=== PATIENT | female | born 1990 | race Caucasian/White ===

== ENCOUNTER → 2016-09-17 | Outpatient (CLI) | payer OTHER | LOC: FIMAGING 12:06 | PROVIDERS: ATTEND Obstetrics & Gynecology | DX: N63 Unspecified lump in breast (principal) ==

== ENCOUNTER 2016-10-22 06:59 | Day surgery (SDC) | payer OTHER ==
--- NOTE | 2016-10-20 10:18 | GHP ---
[f rep st] PREOP HISTORY AND PHYSICAL DATE OF ADMISSION: 10/22/2016 DATE OF SURGERY: Scheduled for 10/22/2016 CHIEF COMPLAINT: Left breast mass. HISTORY OF PRESENT ILLNESS: Venkat Lopez is a 25-year-old woman who presented to the clinic complaining of a new left breast mass. She was seen by her POT PUSHER who palpated the mass on physical exam. 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 She desires surgical excision. She denies any growth since she first noticed the mass approximately 2 weeks ago. PAST MEDICAL HISTORY: Catecholaminergic polymorphic ventricular tachycardia, history of DVT, ICD placement, migraine headaches. PAST SURGICAL HISTORY: ICD placement. MEDICATIONS: Flecainide 50 mg daily. PAST MEDICAL HISTORY: Significant for type 2 diabetes. REVIEW OF SYSTEMS: Ten-point review of systems negative aside from HPI. SOCIAL HISTORY: She is in medical school. She denies tobacco, alcohol or recreational drug use. PHYSICAL EXAMINATION: GENERAL: Well-developed, well-nourished, woman in no acute distress. HEENT: Normocephalic, atraumatic. No hearing deficits. Pupils equal and round. No scleral icterus. Mucous membranes moist. NECK: Trachea midline. RESPIRATORY: Clear to auscultation bilaterally. No increased work of breathing. CARDIOVASCULAR: Regular rate and rhythm. No peripheral edema. BREASTS: Palpable lump in the left lower outer breast, no other palpable breast masses, no skin changes, nipple drainage or asymmetry. SKIN: Warm and dry. MUSCULOSKELETAL: Normal gait. Normal nails. PSYCH: Mood and affect normal. NEURO: Grossly intact. 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 We will perform an excisional biopsy to obtain a definitive diagnosis. We discussed risks of surgery including, but not limited to, heart attack, stroke, blood clots or . We discussed risk of infection, bleeding, altered sensation, scar or need for additional procedures. She understands the risks and would like to proceed. We anticipate this to be an outpatient procedure. The patient was additionally seen by Dr. Sonia Velazco who agrees with the above impression and plan. /[id number]/MODL MTDD
--- NOTE | 2016-10-22 07:22 | PDHPUP ---
History & Physical Update H&P update statement: This history and physical update is based on an assessment of the patient which was completed after admission or registration (within 24 hours), but prior to the surgery/procedure. H&P update: H&P reviewed & patient examined, no change in patient's condition since H&P completed
[2016-10-22] MEDS ORDERED: LIDOCAINE 1% 2 ML INJ ONE (07:34)
[2016-10-22 07:38] VITALS: PULSE 60
--- NOTE | 2016-10-22 07:42 | CPEKG ---
Heart Rate: 55 RR Interval: 1091 P-R Interval: 152 QRSD Interval: 80 QT Interval: 424 QTC Interval: 406 P [place]: 40 QRS [place]: 66 T Wave [place]: 35 EKG Severity - NORMAL ECG - EKG Impression: SINUS RHYTHM Electronically Signed By: Jw Espinosa 22-Oct-2016 15:13:26
[2016-10-22] MEDS ORDERED: LR 1,000 ML IV ONE (07:53)
[2016-10-22] MEDS ORDERED: LIDOCAINE 1% 2 ML INJ ID PRN (07:53)
[2016-10-22] MEDS ORDERED: MIDAZOLAM 2 MG/2 ML VIAL IVP ONE (08:18)
--- NOTE | 2016-10-22 08:24 | PDANEPAE ---
ANE History of Present Illness for L breast mass excision ANE Past Medical History - Cardiovascular History Hx Hypertension: No Hx Arrhythmias: Yes Hx Chest Pain: No Hx Coronary Artery / Peripheral Vascular Disease: No Hx CHF / Valvular Disease: Yes Hx Palpitations: No Cardiovascular History Comment: cpvt. icd placed for sudden cardiac arrest. dvt - Pulmonary History Hx COPD: No Hx Asthma/Reactive Airway Disease: No Hx Recent Upper Respiratory Infection: No Hx Oxygen in Use at Home: No Hx Sleep Apnea: No Sleep Apnea Screening Result - Last Documented: Negative - Neurologic History Hx Cerebrovascular Accident: No Hx Seizures: Yes Hx Dementia: No Neurologic History Comment: misdiagnosed seizure prior to dx of cpvt - Endocrine History Hx Diabetes: No - Renal History Hx Renal Disorders: No - Liver History Hx Hepatic Disorders: No - Neurological & Psychiatric Hx Hx Neurological and Psychiatric Disorders: No - Cancer History Hx Cancer: No - Congenital Disorder History Hx Congenital Disorders: No - GI History Hx Gastrointestinal Disorders: No - Other Health History Other Health History: none - Chronic Pain History Chronic Pain: No - Surgical History Prior Surgeries: icd placed 2009. tonsillectomy. left sympathetic denervation ANE Review of Systems Review of systems is: negative - Exercise capacity Exercise capacity: >=4 METS METS (RN): 4 METS - Pacemaker Pacemaker Type: Permanent Pacer/Defib Pacemaker Dust Puller: [employer] [place] Pacemaker Model: Fortify VR Pacemaker Mode: VVI Pacemaker Set Rate: 40 Date Pacemaker Last Checked: 09/03/16 ANE Patient History - Allergies Allergies/Adverse Reactions: No Known Allergies Allergy (Verified 10/21/16 15:16) - Home Medications Home Medications: Flecainide Acetate 10/21/16 [Last Taken 10/21/16 18:00] - NPO status NPO Status: no food or drink >8 hours NPO Since - Liquids (Date): 10/21/16 NPO Since - Liquids (Time): 21:00 NPO Since - Solids (Date): 10/22/16 NPO Since - Solids (Time): 20:00 - Anes Hx Anes Hx: post operative nausea - Smoking Hx Smoking Status: Never smoked - Family Anes Hx Family Anes Hx: none Family Hx Anesthesia Complications: none ANE Labs/Vital Signs - Vital Signs Blood Pressure: 114/74 Heart Rate: 60 Respiratory Rate: 16 O2 Sat (%): 98 Height: 154.94 cm Weight: 49.895 kg ANE Physical Exam - Airway Neck exam: FROM Mallampati Score: Class 1 Mouth exam: normal dental/mouth exam - Pulmonary Pulmonary: no respiratory distress - Cardiovascular Cardiovascular: regular rate and rhythym - ASA Status ASA Status: II ANE Anesthesia Plan Total IV Anesthesia: IVGA
[2016-10-22] MEDS ORDERED: ceFAZolin 2 GM/DEXTROSE 100 ML IV ONE (08:40)
[2016-10-22] MEDS ORDERED: PROPOFOL/EMULSION 500 MG/50 ML BOTTLE IV ONE (08:51)
[2016-10-22] MEDS ORDERED: LIDOCAINE 2% 100 MG/5 ML SYR ONE ×2 (08:51)
[2016-10-22] MEDS ORDERED: SODIUM BICARBONATE 10 MEQ/10 ML SYR IVP ONE (09:14)
[2016-10-22] MEDS ORDERED: BUPIVACAINE 0.5% 30 ML SDV ONE (09:15)
[2016-10-22] MEDS ORDERED: LIDOCAINE 1% 300 MG/30 ML SDV ONE (09:16)
[2016-10-22] MEDS ORDERED: MEPERIDINE 25 MG/ML SYR IVP PRN (09:34)
[2016-10-22] MEDS ORDERED: HYDROCODONE/APAP 5/325 TAB PO PRN (09:34)
[2016-10-22] MEDS ORDERED: HYDROmorphONE/DILAUDID 1 MG/ML SYR IVP PRN (09:34)
[2016-10-22] MEDS ORDERED: DEXAMETHASONE 4 MG/ML VIAL IVP PRN (09:34)
[2016-10-22] MEDS ORDERED: fentaNYL 100 MCG/2 ML INJ IVP PRN (09:34)
[2016-10-22] MEDS ORDERED: ACETAMINOPHEN 500 MG TAB PO PRN (09:34)
[2016-10-22] MEDS ORDERED: PROMETHAZINE HCL 25 MG/ML INJ IVP PRN (09:34)
[2016-10-22] MEDS ORDERED: NALOXONE HCL 0.4 MG/ML INJ IVP PRN (09:34)
[2016-10-22] MEDS ORDERED: OXYCODONE/APAP 5/325 TAB PO PRN (09:34)
--- NOTE | 2016-10-22 09:37 | POSTANESTH ---
Post Anesthetic Evaluation Cardiovascular Status: Similar to Pre-Op Cond Respiratory Status: Normal, Stable, Similar to Pre-op Cond. Level of Consciousness/Mental Status: Can Participate in Eval, Mildly Sleepy, Arousable Pain Control: Adequate, Prn Tx Ordered Nausea/Vomiting Control: Adequate, Prn Tx Ordered Complications Possibly Related to Anesthesia: None Noted
--- NOTE | 2016-10-22 09:44 | POSTOPPROG ---
Post Op Note Date of Operation: 10/22/16 Surgeon: Sonia Velazco [employer] Baggage Porter: joaquín Anesthesiologist: eitan Anesthesia: IV Sedation Pre-op Diagnosis: l breast mass Post-op Diagnosis: l breast mass Indication: 25 yo with left breast mass Procedure: left breast mass Findings: firm tissue Inf/Abcess present in the surg proc area at time of surgery?: No EBL: Minimal Specimen(s): breast mass
[2016-10-22 10:13] VITALS: TEMP 97.3
[2016-10-22 11:27] VITALS: BP 108/52; RESP 18; O2SAT 98
--- NOTE | 2016-10-22 16:42 | GOP ---
[f rep st] OPERATIVE REPORT DATE OF OPERATION: 10/22/2016 SURGEON: Sonia Velazco MD TIMBER DEADENER: Emily Alicea, JAD. ANESTHESIA: Monitored anesthesia care with IV sedation. ANESTHESIOLOGIST: Luke Reese MD. PREOPERATIVE DIAGNOSIS: Left breast mass. POSTOPERATIVE DIAGNOSIS: Left breast mass. PROCEDURE PERFORMED: Excision of left breast mass. FINDINGS: Firm tissue. SPECIMENS: Breast mass. ESTIMATED BLOOD LOSS: 5 cc. INDICATIONS: The patient is a 25-year-old woman who developed a breast mass. She desires excisiona l biopsy. DESCRIPTION OF PROCEDURE: The patient was brought into the operating room, placed supine on the tab le, and monitored anesthesia care with IV sedation was performed. Her left breast was prepped and d raped in the usual sterile fashion. I infiltrated the area with 0.5% Marcaine mixed with 1% lidocai ne. I made an incision beneath her areola. I pushed the mass up into this area. I dissected down through the breast tissue until I encountered the mass. I grasped with an Allis and then circumfere ntially dissected it. It was passed off the field. Hemostasis was achieved in the cavity. The wou nd was closed with 3-0 Vicryl, followed by 4-0 Monocryl. Mastisol, Steri-Strips, and a sterile dres sing were applied. She was awakened in the operating room, transferred to PACU in stable condition. /[id number]/MODL
== END 2016-10-22 11:27 | disposition home or self-care (01) ==
LOC: FSGY 06:59
PROVIDERS: ATTEND Surgery
PROC: 0HBU0ZZ Excision of Left Breast, Open Approach (ICD-10-PCS; principal; 2016-10-22 08:45)
DX: N63 Unspecified lump in breast (principal)
CPT/HCPCS: J0690; J2001; J2250; J2704